=== PATIENT | male | born 1985 | race Caucasian/White ===

== ENCOUNTER 2022-02-11 15:41 | Day surgery (SDC) | payer OTHER ==
[2022-02-11] MEDS ORDERED: Xylocaine-Mpf 2% 5 Ml Vial IJ ONE (15:42)
[2022-02-11] MEDS ORDERED: DIPRIVAN 200 MG/20 ML IV ONE (16:50)
[2022-02-11] MEDS ORDERED: Lactated Ringers 1,000 ML IV ONE (17:19)
--- NOTE | 2022-02-11 18:13 | XRAY ---
Indication: Bilateral L4-S1 MBB. Intraoperative fluoroscopy provided for 9 seconds. Single digital spot image submitted for interpretation demonstrates posterior needle tips projecting over the expected left and right L4-S1 nerve roots. Correlate with intraoperative findings/report.
--- NOTE | 2022-02-12 12:52 | XRAY ---
9 seconds of fluoroscopy was used in surgery for a bilateral L4-S1 MBB.
== END 2022-02-11 17:15 | disposition home or self-care (01) ==
LOC: SDC-PAIN 15:41
PROVIDERS: ATTEND Psychiatry & Neurology Pain Medicine
DX: M47.816 Spondylosis without myelopathy or radiculopathy, lumbar region (principal)
CPT/HCPCS: 64493; 64494; 72020; 77002; J2704

== ENCOUNTER 2022-03-11 11:49 | Day surgery (SDC) | payer OTHER ==
[2022-03-11] MEDS ORDERED: Marcaine Mpf 0.5% Vial 30 Ml IJ ONE (11:50)
[2022-03-11] MEDS ORDERED: DIPRIVAN 200 MG/20 ML IV ONE ×2 (14:29→14:38)
--- NOTE | 2022-03-11 16:26 | XRAY ---
Indication: Bilateral L4-S1 MBB. Intraoperative fluoroscopy provided for 16 seconds. Single digital spot image submitted for interpretation demonstrates posterior needle tips projecting over the expected left and right L4-S1 nerve roots. Correlate with intraoperative findings/report.
--- NOTE | 2022-03-11 16:47 | XRAY ---
16 seconds of fluoroscopy was used in surgery for a bilateral L4-S1 MBB.
== END 2022-03-11 14:54 | disposition home or self-care (01) ==
LOC: SDC-PAIN 11:49
PROVIDERS: ATTEND Psychiatry & Neurology Pain Medicine
DX: M47.816 Spondylosis without myelopathy or radiculopathy, lumbar region (principal); Z79.899 Other long term (current) drug therapy
CPT/HCPCS: 64493; 64494; 72020; 77002; J2704

== ENCOUNTER 2022-03-25 12:07 | Day surgery (SDC) | payer OTHER ==
[2022-03-25] MEDS ORDERED: XYLOCAINE-MPF 1% 5ML SDV IJ ONE (12:08)
[2022-03-25] MEDS ORDERED: Depo-Medrol 40 MG/ML IM ONE (12:08)
[2022-03-25] MEDS ORDERED: Marcaine Mpf 0.5% Vial 30 Ml IJ ONE (12:08)
[2022-03-25] MEDS ORDERED: DIPRIVAN 200 MG/20 ML IV ONE ×2 (13:24→13:34)
[2022-03-25] MEDS ORDERED: Ketamine HCl 50 MG/ML ONE (13:33)
[2022-03-25] MEDS ORDERED: MORPHINE SULFATE 2 MG INJ ONE (13:46)
[2022-03-25] MEDS ORDERED: Lactated Ringers 1,000 ML IV ONE (13:57)
--- NOTE | 2022-03-25 14:21 | XRAY ---
Indication: Right L4-S1 RFA. Intraoperative fluoroscopy provided for 42 seconds. 3 digital spot image submitted for interpretation demonstrates posterior needle tips projecting over the expected right L4-S1 nerve roots. Correlate with intraoperative findings/report.
--- NOTE | 2022-03-25 14:29 | XRAY ---
42 seconds fluoroscopy time in surgery for righ tL4-S1 RFA.
== END 2022-03-25 14:01 | disposition home or self-care (01) ==
LOC: SDC-PAIN 12:07
PROVIDERS: ATTEND Psychiatry & Neurology Pain Medicine
DX: M47.816 Spondylosis without myelopathy or radiculopathy, lumbar region (principal); Z79.899 Other long term (current) drug therapy
CPT/HCPCS: 64635; 64636; 72100; 77002; J1030; J2270; J2704

== ENCOUNTER 2022-04-08 11:29 | Day surgery (SDC) | payer OTHER ==
[2022-04-08] MEDS ORDERED: Marcaine Mpf 0.5% Vial 30 Ml IJ ONE (11:30)
[2022-04-08] MEDS ORDERED: XYLOCAINE-MPF 1% 5ML SDV IJ ONE (11:30)
[2022-04-08] MEDS ORDERED: Depo-Medrol 40 MG/ML IM ONE (11:30)
[2022-04-08] MEDS ORDERED: DIPRIVAN 200 MG/20 ML IV ONE (12:25)
[2022-04-08] MEDS ORDERED: MORPHINE SULFATE 2 MG INJ ONE ×2 (12:38→12:47)
[2022-04-08] MEDS ORDERED: Lactated Ringers 1,000 ML IV ONE (13:45)
--- NOTE | 2022-04-08 14:11 | XRAY ---
Indication: Left L4-S1 RFA. Intraoperative fluoroscopy provided for 17 seconds. 2 digital spot image submitted for interpretation demonstrates posterior needle tips projecting over the expected left L4-S1 nerve roots. Correlate with intraoperative findings/report.
--- NOTE | 2022-04-09 09:20 | XRAY ---
17 seconds fluoroscopy time in surgery for left L4-S1 RFA.
== END 2022-04-08 13:00 | disposition home or self-care (01) ==
LOC: SDC-PAIN 11:29
PROVIDERS: ATTEND Psychiatry & Neurology Pain Medicine
DX: M47.816 Spondylosis without myelopathy or radiculopathy, lumbar region (principal); Z79.899 Other long term (current) drug therapy
CPT/HCPCS: 64635; 64636; 72100; 77002; J1030; J2270; J2704